=== PATIENT | male | born 1965 | race Caucasian/White ===

== ENCOUNTER 2021-08-12 20:47 | Observation (INO) ==
[2021-08-12] MEDS ORDERED: IOPAMIDOL 100 ML BOTTLE IV ONE (20:48)
--- NOTE | 2021-08-12 20:58 | Emergency Department Note ---
Lower Extremity Injury HPI General Chief Complaint: Extremity Injury, Lower Stated Complaint: restless legs Time Seen by Provider: 08/12/21 20:58 Source: patient Mode of arrival: ambulatory Limitations: no limitations History of Present Illness HPI Narrative: Narrative: 55-year-old male presents emergency department stating that he has been sick x6 weeks with "something" says he has the itchy/scratchy. States his skin feels like it is crawling. States it happens frequently and has been going on for weeks. Worse during the evening time when he is finished with work. Patient states he has pains for which she has been taking Aleve and ibuprofen. He then takes large amounts of Tums to address the heartburn that he is getting. Also takes Midol for the swelling in his lower extremities. States he has not seen a doctor for years. States he tried to "drink himself to a few years ago. He was seen in our emergency department in 2019 with a high alcohol level of 300 and a normal hemoglobin. Patient states he gets short of breath with exertion. Denies any visible blood in his stool. Patient has had significant edema in his lower extremities since his excessive drinking several years ago. States he drinks 3-6 beers per day presently and is not and has not been a smoker. He works as a electrical and radio mechanic. Related Data Home Medications Medication Instructions Recorded Confirmed lorazepam 1 mg tablet 1 mg PO DAILY 12/06/18 12/06/18 quetiapine 50 mg tablet 50 mg PO .COMPLEX 12/06/18 12/06/18 Allergies Allergy/AdvReac Type Severity Reaction Status Date / Time No Known Drug Allergies Allergy Verified 12/06/18 17:02 Review of Systems ROS ROS Narrative: Narrative: Constitutional: Denies fever Eyes: Denies eye pain ENT ED: Reports throat pain and congestion (Seasonal allergies); Denies ear pain Cardiovascular: Reports dyspnea on exertion; Denies chest pain Respiratory: Reports shortness of breath and cough Gastrointestinal: Reports abdominal pain (Left upper quadrant) Genitourinary: Denies dysuria Musculoskeletal: Denies back pain Integumentary: Denies rash Neurological: Denies headache Endocrine: Reports fatigue Allergic/Immunologic: Reports other (Seasonal allergies) [facility] Narrative Patient History Narrative: Narrative: Medical/Surgical/Family History All Active Problems Chest pain (Acute) Costalchondritis (Acute) Profound anemia (Acute) Pedal edema (Acute) Social History Smoking Status: Never smoker Exam Narrative Narrative: Narrative: General Limitations: no limitations General appearance: Present alert and consternation Head Head: Present atraumatic and normocephalic Eye Eye: Present normal appearance and EOMI ENT ENT: Present mucous membranes moist Neck Neck: Present normal inspection and trachea midline Chest Chest: Present symmetric chest wall rise Respiratory Respiratory: Present normal lung sounds bilaterally; Absent respiratory distress Cardiovascular Cardiovascular: Present regular rate (91), normal rhythm and systolic murmur (III/) Adbominal Abdominal: Present soft and tenderness (LUQ) Extremities Extremities: Present pedal edema (+4) and pretibial edema (+3) Back Back: Absent tenderness Neurological Neurological: Present alert and oriented X3 Psychiatric Psychiatric: Present normal affect and normal mood Skin Skin: Present warm (WNL), dry and pallor Course Consultations Consultation #1: Discussed with our hospitalist. Patient will be transfused and admitted in less heme-onc advises otherwise. I will call Dr. April Norman who is on-call for heme- onc now. Time: 22:46 Consultation #2: Call placed to Dr. Woodward to obtain guidance for admission versus transfer and further blood testing that may be needed. Dr. Woodward recommended obtaining an LDH, haptoglobin, reticulocyte count. Recommended transfusing 2 units of packed red blood cells and likely would need another 2 units after that. Concurred with obtaining a CT scan of the abdomen pelvis with contrast. [place] the patient was appropriate for admission to our hospital. Requested I advised the hospitalist that he is happy to be consulted on this patient. Time: 22:57 Consultation #3: Called Dr. Mariscal the hospitalist. I shared with Dr. Hair had advised. He agreed with admission to the hospital requested the patient go to PCU. Time: 23:10 Vital Signs Vital signs: Vital Signs Temperature 98.7 F 08/12/21 20:48 Pulse Rate 91 H 08/12/21 20:48 Respiratory Rate 18 08/12/21 20:48 Blood Pressure 147/94 08/12/21 20:48 Pulse Oximetry (%) 98 08/12/21 20:48 Temperature 98.7 F 08/12/21 20:48 Pulse Rate 91 H 08/12/21 20:48 Respiratory Rate 14 08/13/21 00:28 Blood Pressure 152/119 08/13/21 00:28 Pulse Oximetry (%) 99 08/13/21 00:28 MDM MDM Narrative Medical decision making narrative: Narrative: Middle-age male presents to the emergency department because of itchy skin of 6 weeks duration. Patient also has some dyspnea on exertion and some left upper quadrant pain for which he takes Tums. Patient also has chronic bilateral lower extremity edema. He does not see a physician. Differential diagnosis includes biliary induced pruritus, allergic pruritus, congestive heart failure, gastritis, NSAID induced gastritis, other. CBC revealed hemoglobin of 3.8. This is profoundly low. Patient is ambulatory. Hematocrit was 13.9 white count was normal at 6 with a normal platelets of 118,000. MCV was quite low at 65. LDH was normal. Haptoglobin is pending. Reticulocyte count is pending. Chest x-ray pending radiology review possible early CHF EKG shows a normal sinus rhythm without ischemic changes prolonged QT interval Case was discussed with the hospitalist who requested I speak with Dr. Woodward the single needle operator. Dr. RANJEET Norman requested I order LDH, haptoglobin and ret iculocyte count. He thought it was unlikely that the patient had leukemia and unlikely that it was hemolysis but more likely that there was some chronic blood loss possibly from a colon cancer though that was purely speculative. He concurred with the obtaining a CT of the abdomen pelvis with contrast. He reiterated his availability to the hospitalist as desired. Patient will be admitted to the hospitalist service for further care patient will be transfused 2 units of packed red blood cells with reassessment after the first 2 units to see if the patient needs an additional 2 units. Patient was given Maalox for stomach discomfort and given Protonix 40 mg IV. Blood loss could be from technical services librarian tabitha NSAID ingestion producing a gastritis. Lab Data Result diagrams: 08/12/21 21:45 08/12/21 21:45 Labs: Lab Results 08/12/21 08/12/21 08/12/21 Range/Units 21:45 21:45 21:45 WBC 6.0 (4.5-11.0) K/mcL RBC 2.13 L (4.63-6.08) M/mcL Hgb 3.8 L* (13.7-17.5) g/dL Hct 13.9 L* (40.1-51.0) % MCV 65.3 L (80.0-100.0) fL MCH 17.8 L (26.0-34.0) pg MCHC 27.3 L (31.0-36.0) g/dL RDW 17.2 H (11.5-14.5) % Plt Count 118 L (140-440) K/mcL MPV 11.0 H (7.4-10.4) fL Neut % (Auto) 51.0 (38.0-78.0) % Lymph % (Auto) 26.0 (15.5-49.0) % [place] % (Auto) 13.4 H (1.0-12.0) % Eos % (Auto) 8.9 H (0.0-7.0) % Baso % (Auto) 0.7 (0.0-2.0) % Lymph # (Auto) 1.57 (1.50-4.80) K/mcL [place] # (Auto) 0.81 (0.10-0.90) K/mcL Eos # (Auto) 0.54 (0.00-0.70) K/mcL Baso # (Auto) 0.04 (0.00-0.30) K/mcL Absolute Neutrophils 3.08 (1.80-8.00) K/mcL Absolute Retic (0.03-0.11) M/mcL Percent Retic (0.50-1.50) % Haptoglobin 94 (30-200) mg/dL Sodium 139 (133-145) mmol/L Potassium 3.6 (3.3-5.1) mmol/L Chloride 105 (96-108) mmol/L Carbon Dioxide 21 L (22-30) mmol/L Anion Gap 13.0 (8.0-16.0) BUN 18 (6-20) mg/dL Creatinine 1.2 (0.7-1.2) mg/dL GFR Calculation 67 Glucose 95 (70-105) mg/dL Calcium 8.5 L (8.6-10.4) mg/dL Total Bilirubin 0.5 (0.1-1.0) mg/dL AST 25 (<40) U/L ALT 10 (<40) U/L Alkaline Phosphatase 100 (39-117) U/L Lactate Dehydrogenase 221 (135-225) U/L Total Protein 8.0 (5.9-8.4) gm/dL Albumin 3.5 (3.2-5.2) gm/dL Globulin 4.5 H (2.2-3.7) gm/dL Albumin/Globulin Ratio 0.8 L (1.0-2.3) Lipase 51 (7-60) U/L 08/12/21 Range/Units 21:45 WBC (4.5-11.0) K/mcL RBC (4.63-6.08) M/mcL Hgb (13.7-17.5) g/dL Hct (40.1-51.0) % MCV (80.0-100.0) fL MCH (26.0-34.0) pg MCHC (31.0-36.0) g/dL RDW (11.5-14.5) % Plt Count (140-440) K/mcL MPV (7.4-10.4) fL Neut % (Auto) (38.0-78.0) % Lymph % (Auto) (15.5-49.0) % [place] % (Auto) (1.0-12.0) % Eos % (Auto) (0.0-7.0) % Baso % (Auto) (0.0-2.0) % Lymph # (Auto) (1.50-4.80) K/mcL [place] # (Auto) (0.10-0.90) K/mcL Eos # (Auto) (0.00-0.70) K/mcL Baso # (Auto) (0.00-0.30) K/mcL Absolute Neutrophils (1.80-8.00) K/mcL Absolute Retic 0.03 (0.03-0.11) M/mcL Percent Retic 1.49 (0.50-1.50) % Haptoglobin (30-200) mg/dL Sodium (133-145) mmol/L Potassium (3.3-5.1) mmol/L Chloride (96-108) mmol/L Carbon Dioxide (22-30) mmol/L Anion Gap (8.0-16.0) BUN (6-20) mg/dL Creatinine (0.7-1.2) mg/dL GFR Calculation Glucose (70-105) mg/dL Calcium (8.6-10.4) mg/dL Total Bilirubin (0.1-1.0) mg/dL AST (<40) U/L ALT (<40) U/L Alkaline Phosphatase (39-117) U/L Lactate Dehydrogenase (135-225) U/L Total Protein (5.9-8.4) gm/dL Albumin (3.2-5.2) gm/dL Globulin (2.2-3.7) gm/dL Albumin/Globulin Ratio (1.0-2.3) Lipase (7-60) U/L Discharge Plan Patient/Caregiver Discharge Instructions Pt seen by GLOBAL POSITION SYSTEM TECHNICIAN/PA only: No Clinical Impression: Pedal edema Profound anemia Qualifiers: Anemia type: iron deficiency Iron deficiency anemia type: unspecified iron deficiency Qualified Code(s): D50.9 - Iron deficiency anemia, unspecified Patient Disposition: Xfer As Inpt ([facility]) Condition: Serious Discharge Date/Time: 08/13/21 01:06 Discharge Location: [facility]
[2021-08-12 22:22] LABS: Basophils # (Auto) 0.04 K/mcL (0.00-0.30); Basophils % (Auto) 0.7 % (0.0-2.0); Eosinophils # (Auto) 0.54 K/mcL (0.00-0.70); Eosinophils % (Auto) 8.9 % (0.0-7.0); Hematocrit 13.9 % (40.1-51.0); Hemoglobin 3.8 g/dL (13.7-17.5); Lymphocytes # (Auto) 1.57 K/mcL (1.50-4.80); Mean Cell Volume 65.3 fL (80.0-100.0); Mean Corpuscular HGB Conc 27.3 g/dL (31.0-36.0); Monocytes # (Auto) 0.81 K/mcL (0.10-0.90); Monocytes % (Auto) 13.4 % (1.0-12.0); Platelet Count 118 K/mcL (140-440); RBC 2.13 M/mcL (4.63-6.08); Red Cell Distribution Width 17.2 % (11.5-14.5)
[2021-08-12] MEDS ORDERED: 0.9 % SODIUM CHLORIDE 250 ML IV SCH (22:45)
[2021-08-12 22:50] LABS: ALT/SGPT 10 U/L (<40); AST/SGOT 25 U/L (<40); Albumin 3.5 gm/dL (3.2-5.2); Albumin/Globulin Ratio 0.8 (1.0-2.3); Alkaline Phosphatase 100 U/L (39-117); Bilirubin,Total 0.5 mg/dL (0.1-1.0); Blood Urea Nitrogen 18 mg/dL (6-20); Calcium 8.5 mg/dL (8.6-10.4); Carbon Dioxide 21 mmol/L (22-30); Chloride 105 mmol/L (96-108); Globulin 4.5 gm/dL (2.2-3.7); Glomerular Filtration Rate 67; Glucose 95 mg/dL (70-105)
[2021-08-12 23:41] LABS: Lactate Dehydrogenase 221 U/L (135-225)
[2021-08-12 23:56] LABS: Retic Absolute 0.03 M/mcL (0.03-0.11)
[2021-08-13] MEDS ORDERED: LORazepam 2 MG/ML VIAL IV ONE (00:29)
[2021-08-13] MEDS ORDERED: ACETAMINOPHEN 325 MG TABLET PO PRN (00:30)
[2021-08-13] MEDS ORDERED: ONDANSETRON 4 MG/2 ML VIAL IV PRN ×2 (00:30→08:40)
[2021-08-13] MEDS ORDERED: PANTOPRAZOLE 40 MG VIAL IV ONE (00:37)
[2021-08-13] MEDS ORDERED: MAG HYDROX/AL HYDROX/SIMETH 30 ML ORAL.SUSP PO ONE (00:38)
[2021-08-13] MEDS ORDERED: MULTIVIT,THER IRON,CA,FA & MIN 1 TABLET PO ONE (00:55)
[2021-08-13 01:08] LABS: Haptoglobin 94 mg/dL (30-200)
[2021-08-13] MEDS: 0.9 % SODIUM CHLORIDE 1,000 ML IV SCH (01:30)
--- NOTE | 2021-08-13 03:28 | XRay Report ---
CLINICAL INFORMATION: Chest pain COMPARISON: 09/26/2020 TECHNIQUE: PA and Lateral views FINDINGS: The heart size, mediastinum and pulmonary vessels are unremarkable. Mild patchy airspace disease is seen in the perimediastinal left upper and right lower lobes. There are no effusions. Moderate compression fractures are seen within the mid midthoracic spine-chronicity unknown IMPRESSION: Mild patchy airspace disease in the paramediastinal left upper and also the right lower lobe likely pneumonia. Moderate compression fractures in the midthoracic spine-chronicity indeterminate. This is quite unusual for a 55-year-old man. Consider DEXA scanning for bone mineral density measurement Interpreted and Authenticated by: Korey Scott 08/13/21
--- NOTE | 2021-08-13 04:32 | Cat Scan Report ---
CLINICAL INFORMATION: Anemia and abdominal pain COMPARISON: None. TECHNIQUE: Following enteric contrast, 80 cc of Isovue-370 were injected intravenously, and 60 seconds later, 0.625 mm helical slices were obtained from the mid heart through the subtrochanteric regions. Following reconstruction, 2.5 mm sagittal, coronal and axial reformatted images were processed and reviewed at bone, lung and soft tissue windows. Five minutes later, 0.625 mm helical slices were obtained from the mid heart through the kidneys and viewed at soft tissue windows.The exam was performed using radiation dose optimization techniques including, but not limited to, automated exposure control, adjustment of the mA and/or kV according to patient size and use of iterative reconstruction technique. FINDINGS: The lung bases are clear. No effusions. The visualized heart is mildly enlarged with calcification in the aortic valve. Small hiatal hernia noted. Abdominal images show the liver decreased in size with inhomogeneous attenuation and irregular cortical surface compatible with cirrhosis. There is no evidence of hepatoma or other focal lesion. The portal vein is distended with enlargement of the portal vein tributaries including the splenic vein, SMV, IMV with mild varices in the perisplenic, perigastric and paraesophageal regions. There is also recanalization of the umbilical vein. Moderate ascites is seen throughout the abdomen. The spleen is moderately enlarged-16 cm. Multiple small stones are seen within the gallbladder. The gallbladder is, otherwise, normal. Common bile duct is normal caliber: 6 mm. Both kidneys, adrenal glands, pancreas and aorta including aortic branches are normal in size configuration and attenuation without focal lesion. There is no adenopathy or free air. Pelvic images show prostate and seminal vesicles are normal. Urinary bladder is distended with moderate diffuse wall thickening. There are multiple sigmoid diverticuli, but no evidence of diverticulitis. The remaining large bowel, appendix region, small bowel and stomach are normal. Bone windows show no osseous abnormality. IMPRESSION: 1. Moderate cirrhosis with portal hypertension including mild varices in the paraesophageal perigastric and perisplenic regions. Moderate splenomegaly noted. There is moderate ascites throughout the abdomen and pelvis. 2. Cholelithiasis. Gallbladder and bile ducts are, otherwise, normal 3. Moderate diffuse urinary bladder wall thickening suggesting the possibility of cystitis or other infiltrative process. 4. Sigmoid diverticulosis, but no evidence of diverticulitis 5. Mild cardiomegaly with aortic valve calcification. Interpreted and Authenticated by: Korey Scott 08/13/21
--- NOTE | 2021-08-13 07:02 | Internal Med History&Physical ---
HPI History of Present Illness Patient information: Note initiated : 08/13/21 at 6:49 am Service Date, if different from initiated Date: [] Patient: Davis Simms 55 y/o M admitted on 08/13/21 for restless legs. Chief Complaint: [] History of present illness: Mr. Simms is a 55 year old M The ED with generalized weakness, skin itching, pyrosis, dyspnea on exertion and some mild leg swelling. Is also been taking naproxen and ibuprofen and large amount of Tums. Also taking midol. Patient has not seen a physician in over 7 years and does drink 3-6 beers/day.. Was last seen in the ER 2019 for costochondritis and had a normal hemoglobin at that time. Patient has shortness of breath on exertion. Denied bloody stools Work-up in the ED revealed a microcytic severe anemia 3.[address] was obtained the abdomen to rule out source of bleeding. Case discussed with electrical journeyman Dr. Galarza who felt it was likely chronic blood loss possibly related to her colon cancer or other source of slow bleed such as peptic ulcer disease. 2 units of blood were ordered in the ER and patient will likely need several more. LDH was within normal limits and bilirubin elevated. Review of Systems: Pertinent positive as above. Denies headache/fever/chills/nausea/vomiting/chest or abdominal pain/cough/dyspnea/diarrhea. Remaining 10 point review of system reviewed negative PFSH PFSH All Active Problems Chest pain (Acute) Costalchondritis (Acute) Profound anemia (Acute) Pedal edema (Acute) MEDS/ALLERGIES Home Medications and Allergies Home Medications Medication Instructions Recorded Confirmed Type lorazepam 1 mg tablet 1 mg PO DAILY 12/06/18 08/13/21 History Allergies Allergy/AdvReac Type Severity Reaction Status Date / Time No Known Drug Allergies Allergy Verified 12/06/18 17:02 EXAM Constitutional Vitals: Temp Pulse Resp BP Pulse Ox 99.4 F H 77 18 123/81 99 08/13/21 04:01 08/13/21 05:01 08/13/21 06:01 08/13/21 06:01 08/13/21 05:01 Exam: General: Alert, Awake, No acute Distress Eyes/N/T: EOMI, PERRL, Head/Neck: neck supple, normocephalic atraumatic CV: RRR, No murmurs, normal s1/s2 Pulm: Clear b/l, no wheezing/rhonchi/rales Abd: soft, nontender, +BS x4 Ext: no clubbing/cyanosis, b/l LE 1-2+ edema Neuro: Alert, no focal deficits, moves all extremities, CN 2-12 grossly intact, symmetrical strength b/l upper/lower, sensations intact b/l upper/lower Skin: warm/dry, pale DATA Data Completed and Pending Labs: Labs from last 24 hours 08/13/21 08/12/21 08/12/21 06:44 21:45 21:45 WBC Pending RBC Pending Hgb Pending Hct Pending MCV Pending MCH Pending MCHC Pending RDW Pending Plt Count Pending MPV Pending Neut % (Auto) Pending Lymph % (Auto) Luna % (Auto) Eos % (Auto) Baso % (Auto) Lymph # (Auto) Luna # (Auto) Eos # (Auto) Baso # (Auto) Absolute Neutrophils Absolute Retic 0.03 Percent Retic 1.49 Haptoglobin 94 Sodium Potassium Chloride Carbon Dioxide Anion Gap BUN Creatinine GFR Calculation Glucose Calcium Total Bilirubin AST ALT Alkaline Phosphatase Lactate Dehydrogenase 221 Total Protein Albumin Globulin Albumin/Globulin Ratio Lipase 08/12/21 08/12/21 21:45 21:45 WBC 6.0 RBC 2.13 L Hgb 3.8 L* Hct 13.9 L* MCV 65.3 L MCH 17.8 L MCHC 27.3 L RDW 17.2 H Plt Count 118 L MPV 11.0 H Neut % (Auto) 51.0 Lymph % (Auto) 26.0 Luna % (Auto) 13.4 H Eos % (Auto) 8.9 H Baso % (Auto) 0.7 Lymph # (Auto) 1.57 Luna # (Auto) 0.81 Eos # (Auto) 0.54 Baso # (Auto) 0.04 Absolute Neutrophils 3.08 Absolute Retic Percent Retic Haptoglobin Sodium 139 Potassium 3.6 Chloride 105 Carbon Dioxide 21 L Anion Gap 13.0 BUN 18 Creatinine 1.2 GFR Calculation 67 Glucose 95 Calcium 8.5 L Total Bilirubin 0.5 AST 25 ALT 10 Alkaline Phosphatase 100 Lactate Dehydrogenase Total Protein 8.0 Albumin 3.5 Globulin 4.5 H Albumin/Globulin Ratio 0.8 L Lipase 51 A/P Narrative A/P Narrative: A: *Severe Microcytic anemia, symptomatic, likely gradual and ongoing blood loss: -no initial obvious source but most likely on ddx is PUD and colon CA -Hgb on admit 3.8 -CT a/p no bleeding source but cirrhosis with varices and ascites. *Generalized weakness/dyspnea on exertion: 2/2 above *Pyrosis, Likely undiagnosed PUD: contributing to above *Alcohol-related cirrhosis w/cirrhosis: *Coagulopathy, mild: 2/2 cirrhosis, INR 1.5 *Alcohol abuse: *Thrombocytopenia: Likely 2/2 cirrhosis *Anxiety: P: -Blood transfusion another 2 units, monitor H&H -FOBT -CT a/p -GI consult -Case discussed with electrical journeyman, haptoglobin unremarkable , reticulocyte count poor response -Peripheral smear pending -UA for CT findings of cystitis -iron supp -CIWA, vitamins, prn ativan -ppi -PT/OT -ppx: SCD (no chemical due to above) / ppi Time Spent With Patient Time: Total time spent is greater than 50% in coordination of care (as documented) at patient's floor/unit and/or counseling patient: time spent >70 minutes on case
[2021-08-13 07:38] LABS: Basophils # (Auto) 0.06 K/mcL (0.00-0.30); Basophils % (Auto) 1.2 % (0.0-2.0); Eosinophils # (Auto) 0.56 K/mcL (0.00-0.70); Eosinophils % (Auto) 10.9 % (0.0-7.0); Hematocrit 17.8 % (40.1-51.0); Hemoglobin 5.3 g/dL (13.7-17.5); Lymphocytes # (Auto) 1.04 K/mcL (1.50-4.80); Lymphocytes % (Auto) 20.2 % (15.5-49.0); Mean Cell Volume 70.1 fL (80.0-100.0); Mean Corpuscular HGB Conc 29.8 g/dL (31.0-36.0); Monocytes # (Auto) 0.76 K/mcL (0.10-0.90); Monocytes % (Auto) 14.8 % (1.0-12.0); Neutrophils % (Auto) 52.9 % (38.0-78.0); Platelet Count 97 K/mcL (140-440); RBC 2.54 M/mcL (4.63-6.08); Red Cell Distribution Width 22.7 % (11.5-14.5); WBC 5.2 K/mcL (4.5-11.0)
[2021-08-13 07:44] LABS: ALT/SGPT 9 U/L (<40); AST/SGOT 23 U/L (<40); Albumin 3.2 gm/dL (3.2-5.2); Albumin/Globulin Ratio 0.8 (1.0-2.3); Alkaline Phosphatase 80 U/L (39-117); Bilirubin,Direct 0.4 mg/dL (<0.3); Bilirubin,Total 1.6 mg/dL (0.1-1.0); Blood Urea Nitrogen 16 mg/dL (6-20); Calcium 8.2 mg/dL (8.6-10.4); Carbon Dioxide 22 mmol/L (22-30); Chloride 106 mmol/L (96-108); Globulin 4.1 gm/dL (2.2-3.7); Glomerular Filtration Rate 75; Glucose 91 mg/dL (70-105); Lactate Dehydrogenase 209 U/L (135-225); Phosphorous 3.5 mg/dL (2.5-4.5); Triglycerides 45 mg/dL (<150); Uric Acid 4.4 mg/dL (2.5-8.0)
[2021-08-13 08:13] LABS: INR 1.5 (0.9-1.1); Prothrombin Time 18.9 sec (11.9-14.5)
[2021-08-13] MEDS ORDERED: 0.9 % SODIUM CHLORIDE 250 ML IV SCH ×2 (08:15→19:15)
--- NOTE | 2021-08-13 08:26 | EKG ---
[facility] Test Date: 2021-08-12 Pat Name: Davis Simms Department: ED Room: Gender: Male [employer]am[employer]: SUDHIR : 1965 Requested By: Kushal Blount Order Number: [id number] Reading MD: Liliane Kemp D.O. Measurements Intervals [place] Rate: 82 P: 48 [place]: 152 QRS: 16 QRSD: 90 T: 41 QT: 456 QTc: 533 Interpretive Statements Sinus rhythm Prolonged QT interval Electronically Signed On 08-13-2021 8:26:54 PDT by Liliane Kemp D.O. /[id number]/[id number]
[2021-08-13 08:33] LABS: Alcohol, Blood < 10.0 mg/dL; Alcohol,Blood < 0.010 gm/dL (<0.010)
[2021-08-13] MEDS ORDERED: POLYETHYLENE GLYCOL 3350 17 GM PACKET PO PRN (08:40)
[2021-08-13] MEDS ORDERED: POTASSIUM CHLORIDE 40 MEQ in DEXTROSE 5% IN WATER 500 ML IV PRN (08:40)
[2021-08-13] MEDS ORDERED: POTASSIUM CHLORIDE 20 MEQ TABLET PO PRN ×2 (08:40)
[2021-08-13] MEDS ORDERED: chlordiazePOXIDE 25 MG CAPSULE PO PRN (08:40)
[2021-08-13] MEDS ORDERED: MAGNESIUM SULFATE 2 GM/50 ML BAG IV PRN (08:40)
[2021-08-13] MEDS ORDERED: SENNOSIDES 1 TABLET PO PRN (08:40)
[2021-08-13] MEDS ORDERED: IPRATROPIUM/ALBUTEROL 3 ML AMPUL.NEB NEB PRN (08:40)
[2021-08-13] MEDS ORDERED: LORazepam 2 MG/ML VIAL IV PRN (08:40)
[2021-08-13 09:19] LABS: Appearance,Urine HAZY (Clear); Bacteria,Urine FEW /hpf (0); Bilirubin,Urine Negative (Negative); Color,Urine YELLOW; Culture Indicated,Urine yes; Glucose,Urine (UA) Negative (Negative); Ketones,Urine Negative (Negative); Leukocyte Esterase,Urine 500 /uL (Negative); Nitrate,Urine Negative (Negative); Protein,Urine Negative (Negative); Specific Gravity,Urine 1.005 (1.000-1.035); Urine RBC 4 /hpf (0-3); Urine Squamous Epithelial Cell 0 /hpf (0-4); Urine WBC 161 /hpf (0-4); Urobilinogen,Urine Negative
[2021-08-13] MEDS: FOLIC ACID 1 MG TABLET PO SCH (09:20)
[2021-08-13] MEDS: FERROUS SULFATE 325 MG TABLET PO SCH ×2 (09:20→17:38)
[2021-08-13] MEDS: IRON POLYSACCHARIDE COMPLEX 150 MG CAPSULE PO SCH (09:20)
[2021-08-13] MEDS: PANTOPRAZOLE 40 MG VIAL IV SCH ×2 (09:20→17:38)
[2021-08-13] MEDS: MULTIVIT,THER IRON,CA,FA & MIN 1 TABLET PO SCH (09:20)
[2021-08-13 09:33] LABS: Amphetamine Screen,Urine None detected; Barbiturate Screen,Urine None detected; Benzodiazepines Screen,Urine None detected; Cannabinoid Screen,Urine None detected; Cocaine Screen,Urine None detected; Opiate Screen,Urine None detected; Oxycodone, Urine Screen None detected; Phencyclidine Screen,Urine None detected
[2021-08-13] MEDS: cefTRIAXone 1 GM VIAL IV SCH (11:10)
[2021-08-13] MEDS: THIAMINE 100 MG in 0.9 % SODIUM CHLORIDE 50 ML IV SCH (11:10)
[2021-08-13] MEDS ORDERED: KETAMINE 50 MG/ML ML IV PRN ×2 (12:56→12:58)
[2021-08-13] MEDS ORDERED: PROPOFOL 200 MG/20 ML VIAL IV SCH ×2 (13:00)
[2021-08-13] MEDS ORDERED: MIDAZOLAM 2 MG/2 ML VIAL IV SCH ×2 (13:00)
--- NOTE | 2021-08-13 13:07 | Internal Medicine Consult Note ---
HPI Data of Consult Patient: new to practice Consult date: 08/13/21 Requesting physician: Nikhil Santoro Primary Care Provider: Deni Hammonds Consult Narrative Patient Information: Note initiated : 08/13/21 at 1:02 pm Service Date, if different from initiated Date: [] Patient: Davis Simms 55 y/o M admitted on 08/13/21 for restless legs. 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 He has been taking Aleve, Midol, and ibuprofen "like M and Ms" since last summer due to a shoulder injury. He developed lower extremity edema and pain around the same time, which he treated with an increase in NSAID use and compression hose. His significant other mentions he has dysphagia to apples and has to regurgitate the bolus. He has frequent heartburn, modestly improved with TUMS. Weight has been stable. He denies any melena, hematochezia, hematemesis. He has a long history of alcohol use, drinking "anything in my way" for years until the point of losing consciousness. He was seen at this ER in 2019 with an alcohol level 300 and transaminase in the 150 with AST > ALT. On this admission, he was found to have cirrhosis with ascites and portal hypertension. He has since moderated his alcohol use to 3-6 beers daily. He has no family history of liver disease, but his father and paternal grandmother were diabetics. He believed he has previously been found negative for HCV. He denies tobacco use. He has not traveled outside the [place]. Prior to today, he has not received a blood transfusion and denies any IVDA. Although he was found to have moderate ascites on CT, he denies any abdominal fullness or distention. Chief complaint: anemia, cirrhosis cc:: CC: Nikhil Santoro Review of Systems All systems: reviewed and no additional remarkable complaints except as stated PFSH PFSH All Active Problems (Updated 08/13/21 @ 13:13 by Daphne Beth MACERATOR OPERATOR) Cirrhosis (Acute) Chest pain (Acute) Costalchondritis (Acute) Profound anemia (Acute) Pedal edema (Acute) MEDS/ALLERGIES Home Medications and Allergies Home Medications Medication Instructions Recorded Confirmed Type lorazepam 1 mg tablet 1 mg PO DAILY 12/06/18 08/13/21 History Allergies Allergy/AdvReac Type Severity Reaction Status Date / Time No Known Drug Allergies Allergy Verified 12/06/18 17:02 EXAM Constitutional Vitals: Temp Pulse Resp BP Pulse Ox 99.1 F H 80 20 140/82 97 08/13/21 12:01 08/13/21 12:09 08/13/21 12:09 08/13/21 12:01 08/13/21 12:09 General appearance: average body habitus, cooperative and no acute distress Head Head exam: Present atraumatic, normal inspection and normocephalic Eye Eye exam: Present normal appearance ENT ENT exam: Present mucous membranes moist Neck Neck exam: Present normal inspection Respiratory Respiratory exam: Present normal respiratory exam and CTAB Cardiovascular Cardiovascular exam: Present normal rate and rhythm; Absent gallop, irregular rhythm or systolic murmur GI/Abdominal GI/Abdominal exam: Present normal bowel sounds and organomegaly; Absent mass Additional comments: Moderate ascites. Splenomegaly (difficult to palpate). Expanded GI/Abdominal Exam GI/Abdominal exam: Present ascites Rectal Rectal exam: Present deferred Expanded Lower Extremity Exam Hip exam: Present swelling Gait: Present not tested/not observed Neurological Exam Neurological exam: Present alert Additional comments: No asterixis. Skin Skin exam: Present pallor Additional comments: Spider nevi. DATA Data Completed and Pending Labs: Labs from last 24 hours 08/13/21 08/13/21 08/13/21 08:15 08:15 07:27 WBC RBC Hgb Hct MCV MCH MCHC RDW Plt Count MPV Neut % (Auto) Lymph % (Auto) [place] % (Auto) Eos % (Auto) Baso % (Auto) Lymph # (Auto) [place] # (Auto) Eos # (Auto) Baso # (Auto) Absolute Neutrophils Smear Path Review Absolute Retic Percent Retic Haptoglobin PT 18.9 H INR 1.5 H Sodium Potassium Chloride Carbon Dioxide Anion Gap BUN Creatinine GFR Calculation Glucose Uric Acid Calcium Phosphorus Magnesium Total Bilirubin Direct Bilirubin GGT AST ALT Alkaline Phosphatase Lactate Dehydrogenase Total Protein Albumin Globulin Albumin/Globulin Ratio Triglycerides Lipase Urine Color Yellow Urine Appearance Hazy A Urine pH 6.0 Ur Specific [place] 1.005 Urine Protein Negative Urine Glucose (UA) Negative Urine Ketones Negative Urine Occult Blood 0.20 Urine Nitrate Negative Urine Bilirubin Negative Urine Urobilinogen Negative Ur Leukocyte Esterase 500 A Urine RBC 4 H Urine WBC 161 H Ur Squamous Epith Cells 0 Urine Bacteria Few A Ur Culture Indicated? yes Urine Opiates Screen None detected Ur Opiates Confirm TNP Ur Oxycodone Screen None detected Urine Methadone Screen None detected Ur Methadone Confirm TNP Ur Barbiturates Screen None detected Ur Barbiturate Confirm TNP Ur Phencyclidine Scrn None detected Urine PCP Confirm TNP Ur Amphetamines Screen None detected U Amphetamines Confirm TNP U Benzodiazepines Scrn None detected Urine Cocaine Screen None detected Urine Cocaine Confirm TNP U Cannabinoids Confirm TNP U Marijuana (THC) Screen None detected Ethyl Alcohol 08/13/21 08/13/21 08/13/21 07:25 06:44 06:44 WBC 5.2 RBC 2.54 L Hgb 5.3 L* Hct 17.8 L* MCV 70.1 L MCH 20.9 L MCHC 29.8 L RDW 22.7 H Plt Count 97 L MPV Neut % (Auto) 52.9 Lymph % (Auto) 20.2 [place] % (Auto) 14.8 H Eos % (Auto) 10.9 H Baso % (Auto) 1.2 Lymph # (Auto) 1.04 L [place] # (Auto) 0.76 Eos # (Auto) 0.56 Baso # (Auto) 0.06 Absolute Neutrophils 2.73 Smear Path Review Absolute Retic Percent Retic Haptoglobin PT INR Sodium 137 Potassium 3.5 Chloride 106 Carbon Dioxide 22 Anion Gap 9.0 BUN 16 Creatinine 1.1 GFR Calculation 75 Glucose 91 Uric Acid 4.4 Calcium 8.2 L Phosphorus 3.5 Magnesium 1.8 Total Bilirubin 1.6 H Direct Bilirubin 0.4 H GGT 25 AST 23 ALT 9 Alkaline Phosphatase 80 Lactate Dehydrogenase 209 Total Protein 7.3 Albumin 3.2 Globulin 4.1 H Albumin/Globulin Ratio 0.8 L Triglycerides 45 Lipase Urine Color Urine Appearance Urine pH Ur Specific [place] Urine Protein Urine Glucose (UA) Urine Ketones Urine Occult Blood Urine Nitrate Urine Bilirubin Urine Urobilinogen Ur Leukocyte Esterase Urine RBC Urine WBC Ur Squamous Epith Cells Urine Bacteria Ur Culture Indicated? Urine Opiates Screen Ur Opiates Confirm Ur Oxycodone Screen Urine Methadone Screen Ur Methadone Confirm Ur Barbiturates Screen Ur Barbiturate Confirm Ur Phencyclidine Scrn Urine PCP Confirm Ur Amphetamines Screen U Amphetamines Confirm U Benzodiazepines Scrn Urine Cocaine Screen Urine Cocaine Confirm U Cannabinoids Confirm U Marijuana (THC) Screen Ethyl Alcohol < 0.010 08/12/21 08/12/21 08/12/21 21:45 21:45 21:45 WBC RBC Hgb Hct MCV MCH MCHC RDW Plt Count MPV Neut % (Auto) Lymph % (Auto) [place] % (Auto) Eos % (Auto) Baso % (Auto) Lymph # (Auto) [place] # (Auto) Eos # (Auto) Baso # (Auto) Absolute Neutrophils Smear Path Review Absolute Retic 0.03 Percent Retic 1.49 Haptoglobin 94 PT INR Sodium 139 Potassium 3.6 Chloride 105 Carbon Dioxide 21 L Anion Gap 13.0 BUN 18 Creatinine 1.2 GFR Calculation 67 Glucose 95 Uric Acid Calcium 8.5 L Phosphorus Magnesium Total Bilirubin 0.5 Direct Bilirubin GGT AST 25 ALT 10 Alkaline Phosphatase 100 Lactate Dehydrogenase 221 Total Protein 8.0 Albumin 3.5 Globulin 4.5 H Albumin/Globulin Ratio 0.8 L Triglycerides Lipase 51 Urine Color Urine Appearance Urine pH Ur Specific [place] Urine Protein Urine Glucose (UA) Urine Ketones Urine Occult Blood Urine Nitrate Urine Bilirubin Urine Urobilinogen Ur Leukocyte Esterase Urine RBC Urine WBC Ur Squamous Epith Cells Urine Bacteria Ur Culture Indicated? Urine Opiates Screen Ur Opiates Confirm Ur Oxycodone Screen Urine Methadone Screen Ur Methadone Confirm Ur Barbiturates Screen Ur Barbiturate Confirm Ur Phencyclidine Scrn Urine PCP Confirm Ur Amphetamines Screen U Amphetamines Confirm U Benzodiazepines Scrn Urine Cocaine Screen Urine Cocaine Confirm U Cannabinoids Confirm U Marijuana (THC) Screen Ethyl Alcohol 08/12/21 08/12/21 21:45 07:27 WBC 6.0 RBC 2.13 L Hgb 3.8 L* Hct 13.9 L* MCV 65.3 L MCH 17.8 L MCHC 27.3 L RDW 17.2 H Plt Count 118 L MPV 11.0 H Neut % (Auto) 51.0 Lymph % (Auto) 26.0 [place] % (Auto) 13.4 H Eos % (Auto) 8.9 H Baso % (Auto) 0.7 Lymph # (Auto) 1.57 [place] # (Auto) 0.81 Eos # (Auto) 0.54 Baso # (Auto) 0.04 Absolute Neutrophils 3.08 Smear Path Review See comment Absolute Retic Percent Retic Haptoglobin PT INR Sodium Potassium Chloride Carbon Dioxide Anion Gap BUN Creatinine GFR Calculation Glucose Uric Acid Calcium Phosphorus Magnesium Total Bilirubin Direct Bilirubin GGT AST ALT Alkaline Phosphatase Lactate Dehydrogenase Total Protein Albumin Globulin Albumin/Globulin Ratio Triglycerides Lipase Urine Color Urine Appearance Urine pH Ur Specific [place] Urine Protein Urine Glucose (UA) Urine Ketones Urine Occult Blood Urine Nitrate Urine Bilirubin Urine Urobilinogen Ur Leukocyte Esterase Urine RBC Urine WBC Ur Squamous Epith Cells Urine Bacteria Ur Culture Indicated? Urine Opiates Screen Ur Opiates Confirm Ur Oxycodone Screen Urine Methadone Screen Ur Methadone Confirm Ur Barbiturates Screen Ur Barbiturate Confirm Ur Phencyclidine Scrn Urine PCP Confirm Ur Amphetamines Screen U Amphetamines Confirm U Benzodiazepines Scrn Urine Cocaine Screen Urine Cocaine Confirm U Cannabinoids Confirm U Marijuana (THC) Screen Ethyl Alcohol A/P Assessment and plan (1) Profound anemia: Status: Acute Qualifiers: Anemia type: iron deficiency Iron deficiency anemia type: unspecified iron deficiency Qualified Code(s): D50.9 - Iron deficiency anemia, unspecified (2) Cirrhosis: Assessment and plan: Patient currently receiving blood transfusion. We will proceed with EGD to check for varices, PUD, angiodysplasia, Roderick's ulcer, malabsorption, etc. We will arrange for colonoscopy tomorrow. 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 Some of his decompensation MAY improve with correction of anemia and complete abstinence from alcohol. He understands he will need retirement monitoring of his cirrhosis. Status: Acute Time Spent With Patient Time: Total time spent is greater than 50% in coordination of care (as documented) at patient's floor/unit and/or counseling patient: Total time spent with greater than 50% in coordination of care (as documented) at patient's floor/unit and/or counseling patient:: 35 - 50 minutes
[2021-08-13] MEDS ORDERED: FUROSEMIDE 20 MG/2 ML VIAL IV ONE ×3 (13:10→21:38)
[2021-08-13 14:24] LABS: Ferritin 11.5 ng/mL (30.0-400.0)
[2021-08-13] MEDS ORDERED: IRON SUCROSE COMPLEX 100 MG/5 ML VIAL IV ONE (15:15)
[2021-08-13] MEDS: 0.9 % SODIUM CHLORIDE 10 ML SYRINGE IV SCH ×2 (16:32→23:38)
[2021-08-13] MEDS ORDERED: MIDAZOLAM 2 MG/2 ML VIAL ONE (16:46)
[2021-08-13] MEDS ORDERED: PROPOFOL 200 MG/20 ML VIAL IV ONE (16:46)
[2021-08-13 18:22] LABS: Hematocrit 21.7 % (40.1-51.0); Hemoglobin 6.8 g/dL (13.7-17.5)
[2021-08-13] MEDS ORDERED: PEG 3350/NA SULF,BICARB,CL/KCL 4,000 ML ORAL.SOL PO SCH (20:00)
[2021-08-14] MEDS: 0.9 % SODIUM CHLORIDE 1,000 ML IV SCH (02:51)
[2021-08-14] MEDS: 0.9 % SODIUM CHLORIDE 10 ML SYRINGE IV SCH (05:54)
[2021-08-14 06:44] LABS: Basophils # (Auto) 0.08 K/mcL (0.00-0.30); Basophils % (Auto) 1.1 % (0.0-2.0); Eosinophils # (Auto) 0.62 K/mcL (0.00-0.70); Eosinophils % (Auto) 8.3 % (0.0-7.0); Hematocrit 23.7 % (40.1-51.0); Hemoglobin 7.4 g/dL (13.7-17.5); Lymphocytes # (Auto) 1.11 K/mcL (1.50-4.80); Lymphocytes % (Auto) 14.8 % (15.5-49.0); Mean Cell Volume 72.3 fL (80.0-100.0); Mean Corpuscular HGB Conc 31.2 g/dL (31.0-36.0); Monocytes # (Auto) 0.92 K/mcL (0.10-0.90); Monocytes % (Auto) 12.3 % (1.0-12.0); Neutrophils % (Auto) 63.5 % (38.0-78.0); Platelet Count 94 K/mcL (140-440); RBC 3.28 M/mcL (4.63-6.08); Red Cell Distribution Width 22.3 % (11.5-14.5); WBC 7.5 K/mcL (4.5-11.0)
[2021-08-14 06:59] LABS: INR 1.6 (0.9-1.1); Prothrombin Time 19.8 sec (11.9-14.5)
[2021-08-14 07:05] LABS: ALT/SGPT 11 U/L (<40); AST/SGOT 39 U/L (<40); Albumin/Globulin Ratio 0.7 (1.0-2.3); Alkaline Phosphatase 79 U/L (39-117); Bilirubin,Direct 0.4 mg/dL (<0.3); Bilirubin,Total 1.5 mg/dL (0.1-1.0); Blood Urea Nitrogen 14 mg/dL (6-20); Calcium 7.9 mg/dL (8.6-10.4); Carbon Dioxide 20 mmol/L (22-30); Chloride 106 mmol/L (96-108); Globulin 4.4 gm/dL (2.2-3.7); Glomerular Filtration Rate 75; Glucose 94 mg/dL (70-105); Lactate Dehydrogenase 370 U/L (135-225); Phosphorous 2.9 mg/dL (2.5-4.5); Triglycerides 62 mg/dL (<150); Uric Acid 4.7 mg/dL (2.5-8.0)
[2021-08-14 07:12] LABS: Ferritin 77.9 ng/mL (30.0-400.0)
[2021-08-14] MEDS: PANTOPRAZOLE 40 MG VIAL IV SCH (07:17)
[2021-08-14 07:18] LABS: Folate 18.4 ng/mL (4.2-19.9)
--- NOTE | 2021-08-14 08:22 | Internal Med Progress Note ---
SUBJECTIVE Subjective Patient information: Note initiated : 08/14/21 at 8:15 am Service Date, if different from initiated Date: [] Patient: Davis Simms 55 y/o M admitted on 08/13/21 for restless legs. Chief Complaint: [] Interval history: Chief Complaint: [] History of present illness: Mr. Simms is a 55 year old M The ED with generalized weakness, skin itching, pyrosis, dyspnea on exertion and some mild leg swelling. Is also been taking naproxen and ibuprofen and large amount of Tums. Also taking midol. Patient has not seen a physician in over 7 years and does drink 3-6 beers/day.. Was last seen in the ER 2019 for costochondritis and had a normal hemoglobin at that time. Patient has shortness of breath on exertion. Denied bloody stools Work-up in the ED revealed a microcytic severe anemia 3.[address] was obtained the abdomen to rule out source of bleeding. Case discussed with school psychologist Dr. Galarza who felt it was likely chronic blood loss possibly related to her colon cancer or other source of slow bleed such as peptic ulcer disease. 2 units of blood were ordered in the ER and patient will likely need several more. LDH was within normal limits and bilirubin elevated. 08/14 Patient feeling better status post blood transfusion. Pending colonoscopy. No vomiting. No abdominal pain. Feeling a little stronger. Hemoglobin now up above 7. Platelets 94. FOBT negative. Review of Systems: denies headache/fever/chills/nausea/vomiting/chest or abdominal pain/cough/dyspnea/diarrhea. Otherwise see above. Constitutional Vitals: Vital Signs Temp Pulse Resp BP Pulse Ox 98.6 F 75 18 114/76 98 08/14/21 08:01 08/14/21 08:04 08/14/21 08:04 08/14/21 08:01 08/14/21 08:04 Period Temp Pulse Resp BP Sys/Durán Pulse Ox Last 24 Hr 98.6 F-99.8 F 73-95 15-32 105-149/62-96 86-100 Intake and Output 08/13/21 08/14/21 08/14/21 21:59 05:59 13:59 Intake Total 1386 1065 Output Total 2475 650 Balance -1089 415 Weight 92.334 kg 79.946 kg Intake & Output: Intake & Output 08/13/21 08/14/21 08/14/21 21:59 05:59 13:59 Intake Total 1386 1065 Output Total 3700 716 Balance -1089 415 Weight 92.334 kg 79.946 kg Intake: IV 56 125 Sodium Chloride 0.9% 250 ml @ 56 125 20 mls/hr IV .[id number] [facility] Rx#: [id number] Oral 680 700 Blood Product 650 GI Tube Flush 240 Output: Void Amount [id number] Other: Meal Dinner Percent of Meal Consumed 100% Feeding Ability Independent Urine Appearance Clear Clear Urine Color Bright Yellow [place] Stool Size Moderate Stool Consistency Watery # Bowel Movements 1 Exam: General: Alert, Awake, No acute Distress Eyes/N/T: EOMI, Head/Neck: neck supple, CV: RRR, No murmurs, Pulm: Clear b/l, no wheezing/rhonchi/rales Abd: soft, nontender, +BS x4 Ext: no clubbing/cyanosis, b/l LE mild edema Neuro: Alert, no focal deficits, moves all extremities, Skin: warm/dry, OBJ DATA Labs CBC & Chem 7: 08/14/21 05:18 08/14/21 05:18 Labs: Abnormal Lab Results 08/14/21 08/14/21 08/14/21 05:18 05:18 05:18 RBC 3.28 L Hgb 7.4 L Hct 23.7 L MCV 72.3 L MCH 22.6 L MCHC RDW 22.3 H Plt Count 94 L MPV Lymph % (Auto) 14.8 L [place] % (Auto) 12.3 H Eos % (Auto) 8.3 H Lymph # (Auto) 1.11 L [place] # (Auto) 0.92 H PT 19.8 H INR 1.6 H Carbon Dioxide 20 L Calcium 7.9 L Iron TIBC Unsat Iron Binding Transferrin % Sat Ferritin Total Bilirubin 1.5 H Direct Bilirubin 0.4 H Lactate Dehydrogenase 370 H Albumin 3.0 L Globulin 4.4 H Albumin/Globulin Ratio 0.7 L Urine Appearance Ur Leukocyte Esterase Urine RBC Urine WBC Urine Bacteria 08/13/21 08/13/21 08/13/21 17:32 08:15 07:27 RBC Hgb 6.8 L* Hct 21.7 L MCV MCH MCHC RDW Plt Count MPV Lymph % (Auto) [place] % (Auto) Eos % (Auto) Lymph # (Auto) [place] # (Auto) PT 18.9 H INR 1.5 H Carbon Dioxide Calcium Iron TIBC Unsat Iron Binding Transferrin % Sat Ferritin Total Bilirubin Direct Bilirubin Lactate Dehydrogenase Albumin Globulin Albumin/Globulin Ratio Urine Appearance Hazy A Ur Leukocyte Esterase 500 A Urine RBC 4 H Urine WBC 161 H Urine Bacteria Few A 08/13/21 08/13/21 08/12/21 06:44 06:44 21:45 RBC 2.54 L Hgb 5.3 L* Hct 17.8 L* MCV 70.1 L MCH 20.9 L MCHC 29.8 L RDW 22.7 H Plt Count 97 L MPV Lymph % (Auto) [place] % (Auto) 14.8 H Eos % (Auto) 10.9 H Lymph # (Auto) 1.04 L [place] # (Auto) PT INR Carbon Dioxide Calcium 8.2 L Iron 13 L TIBC 470 H Unsat Iron Binding 457 H Transferrin % Sat 3 L Ferritin 11.5 L Total Bilirubin 1.6 H Direct Bilirubin 0.4 H Lactate Dehydrogenase Albumin Globulin 4.1 H Albumin/Globulin Ratio 0.8 L Urine Appearance Ur Leukocyte Esterase Urine RBC Urine WBC Urine Bacteria 08/12/21 08/12/21 21:45 21:45 RBC 2.13 L Hgb 3.8 L* Hct 13.9 L* MCV 65.3 L MCH 17.8 L MCHC 27.3 L RDW 17.2 H Plt Count 118 L MPV 11.0 H Lymph % (Auto) [place] % (Auto) 13.4 H Eos % (Auto) 8.9 H Lymph # (Auto) [place] # (Auto) PT INR Carbon Dioxide 21 L Calcium 8.5 L Iron TIBC Unsat Iron Binding Transferrin % Sat Ferritin Total Bilirubin Direct Bilirubin Lactate Dehydrogenase Albumin Globulin 4.5 H Albumin/Globulin Ratio 0.8 L Urine Appearance Ur Leukocyte Esterase Urine RBC Urine WBC Urine Bacteria Meds: Medications Acetaminophen (Acetaminophen 325 Mg Tablet) 650 mg PO Q6HP PRN; Protocol PRN Reason: Per Pain Protocol/Fever > 101 Albuterol/Ipratropium (Ipratropium/Albuterol 3 Ml Ampul.Neb) 3 ml NEB Q4HP PRN PRN Reason: Shortness Of Breath Ceftriaxone Sodium (Ceftriaxone 1 Gm Vial) 1 gm IV Q24H ANA; Protocol Last Admin: 08/13/21 11:10 Dose: 1 gm Documented by: Chlordiazepoxide HCl (Chlordiazepoxide 25 Mg Capsule) 50 mg PO Q4HP PRN PRN Reason: Alcohol Withdrawal Ferrous Sulfate (Ferrous Sulfate 325 Mg Tablet) 325 mg PO BIDCC [facility] Last Admin: 08/13/21 17:38 Dose: 325 mg Documented by: Folic Acid (Folic Acid 1 Mg Tablet) 1 mg PO DAILY [facility] Last Admin: 08/13/21 09:20 Dose: 1 mg Documented by: Sodium Chloride (Sodium Chloride 0.9%) 1,000 mls @ 20 mls/hr IV .Q24H [facility] Last Admin: 08/14/21 02:51 Dose: Not Given Documented by: Potassium Chloride 40 meq/ (Dextrose) 520 mls @ 130 mls/hr IV UD PRN PRN Reason: Potassium < 3 Magnesium Sulfate (Magnesium Sulfate) 2 gm in 50 mls @ 50 mls/hr IV UD PRN PRN Reason: Magnesium </= 1.6 Thiamine HCl 100 mg/ Sodium (Chloride) 51 mls @ 50 mls/hr IV DAILY [facility] Last Infusion: 08/13/21 12:35 Dose: Infused Documented by: Iron Carb/Multivit/Crane/Folic Acid (Multivit,Ther Iron,Ca,Fa & Min 1 Tablet) 1 tab PO DAILY [facility] Last Admin: 08/13/21 09:20 Dose: 1 tab Documented by: Iron Sucrose (Iron Sucrose Complex 100 Mg/5 Ml Vial) 200 mg IV ONCE ONE Stop: 08/15/21 10:01 Lorazepam (Lorazepam 2 Mg/Ml Vial) 0 mg IV Q4HP PRN; Protocol PRN Reason: Alcohol Withdrawal Ondansetron HCl (Ondansetron 4 Mg/2 Ml Vial) 4 mg IV Q4HP PRN; Protocol PRN Reason: Nausea And Vomiting Ondansetron HCl (Ondansetron 4 Mg/2 Ml Vial) 4 mg IV Q4HP PRN PRN Reason: Nausea And Vomiting Pantoprazole Sodium (Pantoprazole 40 Mg Vial) 40 mg IV BIDAC [facility] Last Admin: 08/14/21 07:17 Dose: 40 mg Documented by: Polyethylene Glycol (Polyethylene Glycol 3350 17 Gm Packet) 17 gm PO DAILYP PRN PRN Reason: Constipation Polysaccharide Iron Complex (Iron Polysaccharide Complex 150 Mg Capsule) 150 mg PO DAILY [facility] Last Admin: 08/13/21 09:20 Dose: 150 mg Documented by: Potassium Chloride (Potassium Chloride 20 Meq Tablet) 40 meq PO UD PRN PRN Reason: Potssium is 3-3.5 Potassium Chloride (Potassium Chloride 20 Meq Tablet) 40 meq PO UD PRN PRN Reason: Potassium < 3 Senna (Sennosides 1 Tablet) 2 tab PO DAILYP PRN PRN Reason: Constipation Sodium Chloride (0.9 % Sodium Chloride 10 Ml Syringe) 10 ml IV Q8 [facility] Last Admin: 08/14/21 05:54 Dose: 10 ml Documented by: A/P Narrative A/P Narrative: A: *Severe Microcytic (WAQAR) anemia, symptomatic, likely gradual and ongoing blood loss: -no initial obvious source but most likely on ddx is PUD and colon CA, FOBT neg -Hgb on admit 3.8 -haptoglobin unremarkable, no schistocytes on smear -CT a/p no bleeding source but cirrhosis with varices and ascites. -s/p total of 5 units PRBC transfused *UTI ( ): *Generalized weakness/dyspnea on exertion: 2/2 above *Pyrosis, Likely undiagnosed PUD: contributing to above *Alcohol-related cirrhosis w/ascites: -with associated Thrombocytopenia/coagulopathy/Hyperbilirubinemia *Alcohol abuse: *Thrombocytopenia: Likely 2/2 cirrhosis *Anxiety: P: -prn Blood transfusion to keept >7 -GI for EGD/Colon -Rocephin pending UC -iron supp, IV iron -CIWA, vitamins, prn ativan -Alcohol cessation counseling given cirrhosis, f/u with GI -PT/OT -ppx: SCD (no chemical due to above) / H2 Time Spent With Patient Time: Total time spent is greater than 50% in coordination of care (as documented) at patient's floor/unit and/or counseling patient:
[2021-08-14] MEDS ORDERED: KETAMINE 50 MG/ML ML IV PRN ×2 (08:48→11:46)
[2021-08-14] MEDS ORDERED: PROPOFOL 200 MG/20 ML VIAL IV SCH ×2 (09:00→12:00)
[2021-08-14] MEDS ORDERED: MIDAZOLAM 2 MG/2 ML VIAL IV SCH ×2 (09:00→12:00)
[2021-08-14] MEDS ORDERED: FAMOTIDINE 20 MG TABLET PO SCH (09:00)
[2021-08-14] MEDS: MULTIVIT,THER IRON,CA,FA & MIN 1 TABLET PO SCH (09:13)
[2021-08-14] MEDS: IRON POLYSACCHARIDE COMPLEX 150 MG CAPSULE PO SCH (09:14)
[2021-08-14] MEDS: FERROUS SULFATE 325 MG TABLET PO SCH (09:14)
[2021-08-14] MEDS: FOLIC ACID 1 MG TABLET PO SCH (09:14)
[2021-08-14] MEDS: THIAMINE 100 MG in 0.9 % SODIUM CHLORIDE 50 ML IV SCH (09:46)
[2021-08-14] MEDS: cefTRIAXone 1 GM VIAL IV SCH (09:46)
--- NOTE | 2021-08-14 10:36 | EGD Procedure Note ---
EGD Procedure Notes Procedure Information Patient information: Note initiated : 08/14/21 at 10:35 am Service Date: 08/13/21 Patient: Davis Simms 55 y/o M admitted on 08/13/21 for restless legs. Pre-op diagnosis general: Anemia. Portal hypertension. Post-Op Diagnosis general: GI bleed. Indeterminate source. Procedure: EGD with Bx Procedure Narrative: The procedure, alternatives and risks were discussed with the patient and the patient's questions were answered. With endoscopist-administered intravenous sedation, the Olympus video endoscope was introduced into the esophagus. The esophagus, stomach, and duodenum were examined sequentially. No abnormality seen. There is no esophagitis nor hiatal hernia. Food was seen in the stomach. The gastric mucosa, antrum, pyloric ring and duodenum were otherwise normal. Antral biopsy was taken for DIAMOND test. No varices were seen; the scope was withdrawn. Assessment: GI bleed. Indeterminate source. Proceed with colonoscopy.
--- NOTE | 2021-08-14 11:00 | Discharge Summary ---
Discharge Provider Provider Patient information: Note initiated : 08/14/21 at 10:58 am Service Date, if different from initiated Date: [] Patient: Davis Simms 55 y/o M admitted on 08/13/21 for restless legs. Chief Complaint: [] Date of admission: 08/13/21 01:06 Discharge date: 08/14/21 Primary care physician: Deni Hammonds Consults: 08/12/21 Consult to Physician [CONS] Stat Comment: Consulting Provider: Nikhil Santoro Reason For Exam: Physician to Consult Consult to Physician [CONS] Stat Comment: post disc. with hospitalist Consulting Provider: Korey García Reason For Exam: Physician to Consult 08/13/21 08:44 Consult to Physician [CONS] Routine Comment: anemia, pyrosis, r/o colon ca Consulting Provider: Parish Campuzano Reason For Exam: Physician to Consult Discharge Meds Discharge Medications Home Medications lorazepam 1 mg tablet 1 mg PO DAILY 12/06/18 [History Confirmed 08/13/21 Last Taken Unknown] ciprofloxacin HCl 500 mg tablet (Cipro) 500 mg PO Q12H #6 tab 08/14/21 [Rx Last Taken Unknown] ferrous sulfate 325 mg (65 mg iron) tablet 325 mg PO BIDCC #60 tab 08/14/21 [Rx Last Taken Unknown] COURSE Hospital Course Hospital course: History of present illness: Mr. Simms is a 55 year old M The ED with generalized weakness, skin itching, pyrosis, dyspnea on exertion and some mild leg swelling. Is also been taking naproxen and ibuprofen and large amount of Tums. Also taking midol. Patient has not seen a physician in over 7 years and does drink 3-6 beers/day.. Was last seen in the ER 2019 for costochondritis and had a normal hemoglobin at that time. Patient has shortness of breath on exertion. Denied bloody stools Work-up in the ED revealed a microcytic severe anemia 3.[address] was obtained the abdomen to rule out source of bleeding. Case discussed with [employer] manager Dr. Galarza who felt it was likely chronic blood loss possibly related to her colon cancer or other source of slow bleed such as peptic ulcer disease. 2 units of blood were ordered in the ER and patient will likely need several more. LDH was within normal limits and bilirubin elevated. 08/14 Patient feeling better status post blood transfusion. Pending colonoscopy. No vomiting. No abdominal pain. Feeling a little stronger. Hemoglobin now up above 7. Platelets 94. FOBT negative. EGD unremarkable but colonoscopy showed angiodysplasia of the ascending colon (ablation and clip) the source of chronic blood loss A: *Severe Microcytic (WAQAR) anemia, symptomatic: 2/2 likely angiodysplasia of the ascending colon -Hgb on admit 3.8 -haptoglobin unremarkable, no schistocytes on smear -CT a/p no bleeding source but cirrhosis with varices and ascites. -s/p total of 5 units PRBC transfused -EGD unremarkable, Colonscopy showed *UTI ( ): *Generalized weakness/dyspnea on exertion: 2/2 above *Pyrosis, Likely undiagnosed PUD: contributing to above *Alcohol-related cirrhosis w/ascites: -with associated Thrombocytopenia/coagulopathy/Hyperbilirubinemia *Alcohol abuse: *Anxiety: P: -Rocephin pending UC -iron supp -Alcohol cessation counseling given cirrhosis -f/u with GI closely -Refused referral to Dr. Caballero act Discharge diagnosis: Severe symptomatic anemia angiodysplasia iron deficiency anemia UTI general Secondary discharge diagnosis: Pyrosis alcohol-related cirrhosis with ascites thrombocytopenia coagulopathy hyperlipidemia alcohol abuse Anxiety Time Spent with Patient Time attestation: Total time spent providing and/or coordinating discharge services: Time spent: Greater than 30 minutes EXAM Constitutional Vitals: Temp Pulse Resp BP Pulse Ox 98.6 F 81 21 132/80 95 08/14/21 08:01 08/14/21 10:13 08/14/21 10:13 08/14/21 10:01 08/14/21 10:13 Discharge Data Data Completed and Pending Labs on day of discharge: Labs from last 24 hours 08/14/21 08/14/21 08/14/21 05:18 05:18 05:18 WBC RBC Hgb Hct MCV MCH MCHC RDW Plt Count MPV Neut % (Auto) Lymph % (Auto) [place] % (Auto) Eos % (Auto) Baso % (Auto) Lymph # (Auto) [place] # (Auto) Eos # (Auto) Baso # (Auto) Absolute Neutrophils Smear Path Review PT 19.8 H INR 1.6 H Sodium 140 Potassium 3.7 Chloride 106 Carbon Dioxide 20 L Anion Gap 14.0 BUN 14 Creatinine 1.1 GFR Calculation 75 Glucose 94 Uric Acid 4.7 Calcium 7.9 L Phosphorus 2.9 Magnesium 1.8 Iron TIBC Unsat Iron Binding Transferrin % Sat Ferritin 77.9 Total Bilirubin 1.5 H Direct Bilirubin 0.4 H GGT 22 AST 39 ALT 11 Alkaline Phosphatase 79 Lactate Dehydrogenase 370 H Total Protein 7.4 Albumin 3.0 L Globulin 4.4 H Albumin/Globulin Ratio 0.7 L Ceruloplasmin Triglycerides 62 Vitamin B12 Folate 18.4 Ur 24 Hour Volume Ur Copper 24 Hr IgA Rheumatoid Factor THOM Titer THOM FA Screen THOM Pattern SS-A Antibody SS-B Antibody Sm (Carter) Antibody SM/HEALTH PLAN ADVISOR IgG Antibody Scl-70 Antibody Double Strand DNA Ab Ribosomal P Prot Ab Endomysial Ab Titer Endomysial IgA Ab Tiss Transglutamin IgG Tiss Transglutamin IgA Thyroid Peroxidase Ab Celiac Disease Interp Complement C3c Complement C4c Hepatitis A Ab Total Hep Bs Antigen Hep Bs Ag Neutralizatn Hep Bs Antibody, Quant Hep B Core Total Ab Hepatitis C Antibody HCV RNA PCR log IUs/ml 08/14/21 08/13/21 08/13/21 05:18 17:32 17:32 WBC 7.5 RBC 3.28 L Hgb 7.4 L 6.8 L* Hct 23.7 L 21.7 L MCV 72.3 L MCH 22.6 L MCHC 31.2 RDW 22.3 H Plt Count 94 L MPV Neut % (Auto) 63.5 Lymph % (Auto) 14.8 L [place] % (Auto) 12.3 H Eos % (Auto) 8.3 H Baso % (Auto) 1.1 Lymph # (Auto) 1.11 L [place] # (Auto) 0.92 H Eos # (Auto) 0.62 Baso # (Auto) 0.08 Absolute Neutrophils 4.77 Smear Path Review PT INR Sodium Potassium Chloride Carbon Dioxide Anion Gap BUN Creatinine GFR Calculation Glucose Uric Acid Calcium Phosphorus Magnesium Iron TIBC Unsat Iron Binding Transferrin % Sat Ferritin Total Bilirubin Direct Bilirubin GGT AST ALT Alkaline Phosphatase Lactate Dehydrogenase Total Protein Albumin Globulin Albumin/Globulin Ratio Ceruloplasmin Triglycerides Vitamin B12 Folate Ur 24 Hour Volume Cancelled Ur Copper 24 Hr Cancelled IgA Rheumatoid Factor THOM Titer THOM FA Screen THOM Pattern SS-A Antibody SS-B Antibody Sm (Carter) Antibody SM/HEALTH PLAN ADVISOR IgG Antibody Scl-70 Antibody Double Strand DNA Ab Ribosomal P Prot Ab Endomysial Ab Titer Endomysial IgA Ab Tiss Transglutamin IgG Tiss Transglutamin IgA Thyroid Peroxidase Ab Celiac Disease Interp Complement C3c Complement C4c Hepatitis A Ab Total Hep Bs Antigen Hep Bs Ag Neutralizatn Hep Bs Antibody, Quant Hep B Core Total Ab Hepatitis C Antibody HCV RNA PCR log IUs/ml 08/13/21 08/12/21 08/12/21 17:32 21:45 07:27 WBC RBC Hgb Hct MCV MCH MCHC RDW Plt Count MPV Neut % (Auto) Lymph % (Auto) [place] % (Auto) Eos % (Auto) Baso % (Auto) Lymph # (Auto) [place] # (Auto) Eos # (Auto) Baso # (Auto) Absolute Neutrophils Smear Path Review See comment PT INR Sodium Potassium Chloride Carbon Dioxide Anion Gap BUN Creatinine GFR Calculation Glucose Uric Acid Calcium Phosphorus Magnesium Iron 13 L TIBC 470 H Unsat Iron Binding 457 H Transferrin % Sat 3 L Ferritin 11.5 L Total Bilirubin Direct Bilirubin GGT AST ALT Alkaline Phosphatase Lactate Dehydrogenase Total Protein Albumin Globulin Albumin/Globulin Ratio Ceruloplasmin Pending Triglycerides Vitamin B12 1099.0 Folate Ur 24 Hour Volume Ur Copper 24 Hr IgA Pending Rheumatoid Factor Pending THOM Titer Pending THOM FA Screen Pending THOM Pattern Pending SS-A Antibody Pending SS-B Antibody Pending Sm (Carter) Antibody Pending SM/HEALTH PLAN ADVISOR IgG Antibody Pending Scl-70 Antibody Pending Double Strand DNA Ab Pending Ribosomal P Prot Ab Pending Endomysial Ab Titer Pending Endomysial IgA Ab Pending Tiss Transglutamin IgG Pending Tiss Transglutamin IgA Pending Thyroid Peroxidase Ab Pending Celiac Disease Interp Pending Complement C3c Pending Complement C4c Pending Hepatitis A Ab Total Pending Hep Bs Antigen Pending Hep Bs Ag Neutralizatn Pending Hep Bs Antibody, Quant Pending Hep B Core Total Ab Pending Hepatitis C Antibody Pending HCV RNA PCR log IUs/ml Pending Discharge Plan Patient/Caregiver Discharge Instructions Activity: increase activity as tolerated Diet: Regular Diet Instructions: Ciprofloxacin (By mouth), Iron Supplements (By mouth), Anemia (GEN), Colonoscopy (DC), Upper Endoscopy (GEN) Activity Restrictions/Additional Instructions: Increase activity as tolerated, continue a regular diet. Take all your medications and supplements as prescribed. Your prescriptions electronically sent to the [facility]. Follow up with your primary care physician as scheduled. This discharge packet is provided to you to help keep you informed about your care. We want to ensure you get everything you need when you go home. You will also be receiving a call from us in a few days to follow up with you and see how you are doing since your discharge. This gives us a chance to listen to any concerns you maybe experiencing since you were discharged or any additional needs you may have, as well as providing us feedback on your care experience. We strive to always provide excellent care and thank you for your feedback and for choosing [facility]. Prescriptions: New ferrous sulfate 325 mg (65 mg iron) Tablet 325 mg PO BIDCC Qty: 60 0RF ciprofloxacin HCl [Cipro] 500 mg tablet 500 mg PO Q12H Qty: 6 0RF Continued lorazepam 1 MG tablet 1 mg PO DAILY 0RF Follow Up Plan Follow up with: Daphne Beth ARNP [Nurse Practitioner] - Amelie Wooten [Physician] - 08/18/21 11:00 am (Please arrive 15 minutes early ) Patient Disposition: Home, Self-Care Prognosis: Undetermined Overall status at discharge: patient is progressing back to baseline Discharge Orders: Discharge Order (Routine); Ordered 08/14/21 Ordered By: Nikhil Santoro
--- NOTE | 2021-08-14 20:15 | Procedure Note ---
PROC Stool Hemoccult Procedural steps taken: developer placed on stool and control areas Date of Procedure: 08/13/21 Hemoccult result: negative
--- NOTE | 2021-08-15 09:49 | Colonoscopy Procedure Note ---
Colonoscopy Procedure Notes Procedure Information Patient information: Note initiated : 08/15/21 at 9:46 am Service Date: 08/14/21 Patient: Davis Simms 55 y/o M admitted on 08/13/21 for restless legs. Pre-op diagnosis general: Anemia. Post-op diagnosis general: Angiodysplasias in the ascending colon x 5. Procedure: Colonoscopy with control of bleed Procedure narrative: The procedure, alternatives and risks were discussed with the patient and the patient's questions were answered. With endoscopist-administered intravenous sedation, the Olympus colonoscope was introduced into the rectum and advanced to the cecum. Ileocecal valve was identified, intubated, and several centimeters of the terminal ileum were examined and appeared normal. Multiple angiodysplasias were seen in the ascending colon. These were ablated and clipped. Prep as just adequate. Rare diverticulosis was seen. Assessment: Angiodysplasias in the ascending colon x 5. None were bleeding so we cannot be sure these were the definite source of bleed. I have recommended wireless capsule enteroscopy, but the patient has refused. We will see him as an outpatient and attempt to persuade him at that visit.
[2021-08-15] MEDS ORDERED: IRON SUCROSE COMPLEX 100 MG/5 ML VIAL IV ONE (10:00)
[2021-08-15 13:23] LABS: Hepatitis B Surface Antigen NON-REACTIVE (NON-REACTIVE); Hepatitis C Virus Antibody NON-REACTIVE (NON-REACTIVE)
[2021-08-21 16:07] LABS: Complement C3C 95 mg/dL (82-185); Complement C4C 15 mg/dL (15-53); Rheumatoid Factor <14 IU/mL (<14)
== END 2021-08-14 14:00 | disposition home or self-care (01) ==
LOC: ED 20:47 → ICU 20:47
PROVIDERS: ADMIT Internal Medicine; ATTEND Internal Medicine